=== PATIENT | female | born 1985 | race Caucasian/White ===

== ENCOUNTER 2021-09-06 11:48 | Inpatient (IN) | payer MEDICAID ==
[~2021-09-06] VITALS: Ht 172.7 cm; Wt 90.7 kg
[2021-09-07] MEDS: LACTATED RINGERS 1,000 ML IV SCH (08:00)
[2021-09-07 15:03] VITALS: BP 140/80
[2021-09-07] MEDS ORDERED: METHYLERGONOVINE 0.2 MG/ML AMP IM PRN (15:10)
[2021-09-07] MEDS ORDERED: CARBOPROST 250 MCG/ML AMP IM PRN (15:10)
[2021-09-07] MEDS ORDERED: AMPICILLIN 2,000 MG in NACL 0.9% MINI-BAG PLUS 100 ML IV SCH (15:20)
[2021-09-07 15:46] LABS: APPEARANCE,URINE CLEAR (CLEAR); BASOPHILS # (AUTO) 0.1 K/uL (0.00-0.22); BASOPHILS % (AUTO) 0.6 % (0.0-2.0); BILIRUBIN,URINE NEGATIVE (NEGATIVE); BLOOD, URINE NEGATIVE (NEGATIVE); COLOR,URINE YELLOW (YELLOW); EOSINOPHILS # (AUTO) 0.1 K/uL (0-0.4); EOSINOPHILS % (AUTO) 1.1 % (0.0-4.0); HEMATOCRIT 35.2 % (36-48); HEMOGLOBIN 11.6 g/dL (12.0-16.0); LEUKOCYTE ESTERASE ,URINE NEGATIVE (NEGATIVE); LYMPHOCYTES # (AUTO) 1.8 K/uL (2.5-16.5); LYMPHOCYTES % (AUTO) 18.7 % (20.5-51.1); MEAN CORPUSCULAR HEMOGLOBIN 29 pg (27-31); MEAN CORPUSCULAR HGB CONC 33 g/dL (33-37); MEAN CORPUSCULAR VOLUME 87.8 fL (80-94); MONOCYTES # (AUTO) 0.6 K/uL (0.8-1.0); MONOCYTES % (AUTO) 6.1 % (1.7-9.3); NEUTROPHILS % (AUTO) 73.5 % (42.2-75.2); NITRITE, URINE NEGATIVE (NEGATIVE); PH,URINE 7.5 (5.0-9.0); PLATELET COUNT (AUTO) 152 K/uL (140-450); RED BLOOD CELL COUNT(AUTO) 4.01 MIL/uL (4.20-5.40); RED CELL DISTRIBUTION WIDTH 14.5 % (11.6-13.7); UGLUCOSE NEGATIVE (NEGATIVE); WHITE BLOOD COUNT (AUTO) 9.5 K/uL (4.8-10.8)
[2021-09-07 16:02] LABS: ALBUMIN 2.8 g/dL (3.4-5.0); ANION GAP 14.8 (8-16); CREATININE 0.6 mg/dL (0.6-1.3); POTASSIUM 3.8 mmol/L (3.5-5.1); TOTAL BILIRUBIN 0.3 mg/dL (0.0-1.0)
[2021-09-07] MEDS ORDERED: MISOPROSTOL 25 MCG TAB ONE (16:10)
[2021-09-07] MEDS: LACTATED RINGERS 500 ML IV SCH ×2 (16:13→20:12)
[2021-09-07 16:16] LABS: PROTHROMBIN TIME 8.9 secs (10.8-13.4)
[2021-09-07] MEDS ORDERED: AMPICILLIN 1,000 MG in NACL 0.9% MINI-BAG PLUS 50 ML IV SCH (20:00)
[2021-09-07] MEDS: MISOPROSTOL 25 MCG TAB VG PRN (22:54)
[2021-09-07] MEDS ORDERED: AMPICILLIN 2,000 MG VIAL ONE (23:04)
[2021-09-08] MEDS: LACTATED RINGERS 500 ML IV SCH (00:49)
[2021-09-08] MEDS: MISOPROSTOL 25 MCG TAB VG PRN (00:56)
[2021-09-08] MEDS ORDERED: ROPIVACAINE 0.2%/NS PREMIX 200 ML EPI ONE ×4 (01:05→15:10)
[2021-09-08] MEDS ORDERED: AMPICILLIN 1,000 MG VIAL ONE (03:49)
[2021-09-08] MEDS ORDERED: MORPHINE PRES FREE 5 MG/10 ML AMP IV ONE (06:35)
[2021-09-08] MEDS ORDERED: MORPHINE SULFATE 5 MG/ML VIAL IVP PRN ×2 (06:35→18:45)
[2021-09-08] MEDS ORDERED: MORPHINE SULFATE 10 MG/ML VIAL ONE (06:37)
[2021-09-08 06:47] VITALS: BP 126/86
[2021-09-08] MEDS ORDERED: OXYTOCIN 20 UNITS/LR PREMIX 1,000 ML IV ONE ×2 (07:23→09:12)
[2021-09-08] MEDS: LACTATED RINGERS 1,000 ML IV SCH ×2 (07:30→08:00)
[2021-09-08] MEDS ORDERED: METHYLERGONOVINE 0.2 MG/ML AMP IM PRN ×2 (08:00→18:45)
[2021-09-08] MEDS ORDERED: IBUPROFEN 800 MG TAB PO PRN (08:00)
[2021-09-08] MEDS ORDERED: OXYTOCIN 10 UNITS/ML VIAL IM PRN (08:00)
[2021-09-08] MEDS ORDERED: BENZOCAINE/MENTHOL 20%-0.5% 60 GM CAN TP PRN (08:00)
[2021-09-08] MEDS ORDERED: METHYLERGONOVINE 0.2 MG TAB PO PRN (08:00)
[2021-09-08] MEDS ORDERED: SIMETHICONE 80 MG TAB.CHEW PO PRN (08:00)
[2021-09-08] MEDS ORDERED: bisacodyL 5 MG TABEC PO PRN (08:00)
[2021-09-08] MEDS ORDERED: DOCUSATE SODIUM 100 MG GELCAP PO PRN (08:00)
[2021-09-08] MEDS ORDERED: MEASLES, MUMPS, AND RUBELLA 1 VIAL SQVAC ONE (08:00)
[2021-09-08] MEDS ORDERED: IBUPROFEN 600 MG TAB PO PRN (08:00)
[2021-09-08] MEDS ORDERED: HYDROcodone/APAP 5/325 MG 1 TAB TAB PO PRN ×2 (08:00)
[2021-09-08] MEDS ORDERED: MISOPROSTOL 200 MCG TAB RC SCH (08:30)
[2021-09-08] MEDS ORDERED: MISOPROSTOL 200 MCG TAB ONE (08:30)
[2021-09-08] MEDS ORDERED: MEASLES, MUMPS, AND RUBELLA 1 VIAL SQVAC PRN (08:55)
[2021-09-08] MEDS ORDERED: LABE100T8 PO (14:16)
[2021-09-08] MEDS ORDERED: ROPIVACAINE 0.2%/NS PREMIX 200 ML EPI SCH (15:10)
[2021-09-08] MEDS ORDERED: LACTATED RINGERS 1,000 ML IV SCH (18:45)
[2021-09-08] MEDS ORDERED: ONDANSETRON 4 MG/2 ML VIAL IVP PRN (18:45)
[2021-09-08] MEDS ORDERED: OXYTOCIN 20 UNITS in LACTATED RINGERS 1,000 ML IV SCH (18:45)
--- NOTE | 2021-09-09 09:36 | NUR ---
PATIENT HAS BEEN SCREENED AND CATEGORIZED LOW NUTRITION RISK. PATIENT WILL BE SEEN WITHIN 7 DAYS OF ADMISSION. 09/14/[address]
[2021-09-09 09:57] LABS: HEMOGLOBIN 11.1 g/dL (12.0-16.0)
== END 2021-09-10 13:25 | disposition home or self-care (01) | DRG 560 ==
LOC: MUS 11:48 → MLD 09-07 14:38 → OBSVTOIN 09-07 15:09 → MFCC 09-08 10:40
PROVIDERS: ADMIT Obstetrics & Gynecology; ATTEND Obstetrics & Gynecology
PROC: 10E0XZZ Delivery of Products of Conception, External Approach (ICD-10-PCS; principal; 2021-09-08)
PROC: 3E0R3BZ Introduction of Anesthetic Agent into Spinal Canal, Percutaneous Approach (ICD-10-PCS; 2021-09-08)
PROC: 00HU33Z Insertion of Infusion Device into Spinal Canal, Percutaneous Approach (ICD-10-PCS; 2021-09-08)
DX: O13.4 Gestational [pregnancy-induced] hypertension without significant proteinuria, complicating childbirth (principal); Z37.0 Single live birth; Z20.822 Contact with and (suspected) exposure to COVID-19; Z3A.37 37 weeks gestation of pregnancy
CPT/HCPCS: 36415; 51702; 59070; 59200; 59409; 76805; 76815; 80053; 81003; 85018; 85025; 85610; 85730; 86592; 86886; 86900; 86901; J0290; J2270; J2590; J2795; J3490; Q0092